=== PATIENT | male | born 1945 | race Two or more races ===

== ENCOUNTER 2020-09-13 08:44 | Outpatient (CLI) | payer OTHER ==
[~2020-09-13 08:44] MED LIST: ANUCORT-HC25 MG/SUPP RC; ASA81 MG; DIDANOSINE; ISENTRESS400 MG; POLY119PG PO; PREZISTA300 MG; SURFAK240 M1 PO; TYLENOL EXTRA500 MG PO; ULTRAM50 MG PO
== END 2020-09-13 08:49 | disposition home or self-care (01) ==
LOC: RAD 08:44
PROVIDERS: ATTEND General Practice
DX: E04.1 Nontoxic single thyroid nodule (principal); R13.19 Other dysphagia; R22.1 Localized swelling, mass and lump, neck; J45.998 Other asthma; R05 Cough

== ENCOUNTER 2020-10-01 06:27 | Outpatient (CLI) | payer OTHER | END 2020-10-01 06:32 | disposition home or self-care (01) | LOC: LAB 06:27 | PROVIDERS: ATTEND General Practice | DX: E03.8 Other specified hypothyroidism (principal); I11.9 Hypertensive heart disease without heart failure; R73.09 Other abnormal glucose; N40.0 Benign prostatic hyperplasia without lower urinary tract symptoms; Z12.11 Encounter for screening for malignant neoplasm of colon; E78.2 Mixed hyperlipidemia; D64.89 Other specified anemias; E55.9 Vitamin D deficiency, unspecified ==

== ENCOUNTER → 2020-10-02 07:32 | Outpatient (CLI) | payer OTHER | END | disposition home or self-care (01) | LOC: LAB 07:32 | PROVIDERS: ATTEND General Practice | DX: I11.9 Hypertensive heart disease without heart failure (principal); E03.8 Other specified hypothyroidism; R73.09 Other abnormal glucose; N40.0 Benign prostatic hyperplasia without lower urinary tract symptoms; Z12.11 Encounter for screening for malignant neoplasm of colon; E78.2 Mixed hyperlipidemia; D64.89 Other specified anemias; E55.9 Vitamin D deficiency, unspecified ==

== ENCOUNTER 2021-06-06 08:01 | Outpatient (CLI) | payer OTHER | END 2021-06-06 08:06 | disposition home or self-care (01) | LOC: NUCLEAR 08:01 | PROVIDERS: ATTEND General Practice | DX: I73.9 Peripheral vascular disease, unspecified (principal); R60.0 Localized edema ==

== ENCOUNTER 2021-06-07 07:54 | Outpatient (CLI) | payer OTHER | END 2021-06-07 08:08 | disposition home or self-care (01) | LOC: NUCLEAR 07:54 | PROVIDERS: ATTEND General Practice | DX: I73.9 Peripheral vascular disease, unspecified (principal); R60.0 Localized edema ==

== ENCOUNTER 2022-06-01 07:40 | Outpatient (CLI) | payer OTHER | END 2022-06-01 07:42 | disposition home or self-care (01) | LOC: TOM 07:40 | DX: I69.390 Apraxia following cerebral infarction (principal); I67.9 Cerebrovascular disease, unspecified; M25.511 Pain in right shoulder ==

== ENCOUNTER → 2022-07-12 | Outpatient (CLI) | payer OTHER | END | disposition home or self-care (01) | LOC: RAD 11:56 | PROVIDERS: ATTEND Orthopaedic Surgery | DX: Z76.89 Persons encountering health services in other specified circumstances (principal); M25.511 Pain in right shoulder ==

== ENCOUNTER 2024-06-05 09:22 | Outpatient (CLI) | payer OTHER | END 2024-06-05 09:30 | disposition home or self-care (01) | LOC: RAD 09:22 | DX: B20 Human immunodeficiency virus [HIV] disease (principal); I10 Essential (primary) hypertension ==

== ENCOUNTER → 2024-08-18 15:00 | Outpatient (CLI) | payer OTHER ==
[2024-08-18 16:09] LABS: COCAINE POSITIVE (NEGATIVE); METHADONE NEGATIVE (NEGATIVE); OPIATES NEGATIVE (NEGATIVE); THC ( Cannabinoids) NEGATIVE (NEGATIVE)
== END | disposition home or self-care (01) ==
LOC: LAB 15:00
PROVIDERS: ATTEND Internal Medicine Cardiovascular Disease
DX: F18.10 Inhalant abuse, uncomplicated (principal)